=== PATIENT | female | born 1965 | race Caucasian/White ===

== ENCOUNTER 2021-06-09 10:51 | Emergency (ER) | payer MEDICAID ==
[~2021-06-09] VITALS: Ht 167.6 cm; Wt 79.8 kg
--- NOTE | 2021-06-09 10:51 | NUR ---
PT BIBA AND TAKEN TO BED 7
[2021-06-09 10:55] VITALS: BP 141/77
--- NOTE | 2021-06-09 10:59 | NUR ---
dr. stevenson bedside evaluating pt
--- NOTE | 2021-06-09 11:02 | NUR ---
55 Y/O FEMALE BIBA FROM HOME C/O DIZZINESS X1DAY. PER EMS PT STATES ROOM SPINS, ATAXIA NOTED ON SCENE. PT STATES SHE WAS RECENTLY DX WITH EAR INFECTION PRESCRIBED ABX, STOPPED TAKING DUE TO REACTION. STATES +N/-V. DENIES FEVER/CHILLS. DENIES PAIN. PMH: HTN NKA
[2021-06-09] MEDS ORDERED: MECLIZINE 25 MG TAB ONE (11:11)
[2021-06-09] MEDS ORDERED: ONDANSETRON 4 MG ODT ONE (11:12)
[2021-06-09] MEDS ORDERED: ONDANSETRON 4 MG ODT PO ONE (11:15)
[2021-06-09] MEDS ORDERED: MECLIZINE 25 MG TAB PO ONE (11:15)
--- NOTE | 2021-06-09 11:34 | NUR ---
COLLECTED [facility], WALKED TO LAB. GAVE TO RAFFAELE, METAPHYSICIAN AT THIS TIME.
[2021-06-09] MEDS ORDERED: FERR-212 PO (11:54)
[2021-06-09] MEDS ORDERED: AMPICILLIN/SULBACTAM 3 GM VIAL IV ONE (11:55)
[2021-06-09] MEDS ORDERED: AMPICILLIN/SULBACTAM 3 GM in NACL 0.9% 100 ML IV ONE (12:05)
--- NOTE | 2021-06-09 12:10 | NUR ---
PT SENT TO CT
--- NOTE | 2021-06-09 12:21 | NUR ---
PT TAKEN TO CT VIA [facility].
--- NOTE | 2021-06-09 12:44 | NUR ---
PT RESTING IN BED, DENIES N/V, DENIES DIZZINESS, VSS, WILL CONTINUE TO MONITOR.
[2021-06-09] MEDS ORDERED: VANCOMYCIN PER PHARMACY MC PRN (13:45)
[2021-06-09] MEDS ORDERED: CIPROFLOXACIN 0.3% OP 2.5 ML BTL OT ONE (13:45)
[2021-06-09] MEDS ORDERED: VANCOMYCIN 1GM/DEXT 5% PREMIX 200 ML IV ONE (13:45)
[2021-06-09] MEDS ORDERED: CEFEPIME 1,000 MG in DEXTROSE 5% 50 ML IV ONE (13:45)
--- NOTE | 2021-06-09 13:51 | NUR ---
PT ROAD TESTED, FAILED, MADE AWARE. PT ASSISTED ON BEDPAN IN BED. WILL CONTINUE TO MONITOR.
[2021-06-09] MEDS ORDERED: VANCOMYCIN 1,000 MG VIAL ONE (13:54)
[2021-06-09] MEDS ORDERED: CEFEPIME 1,000 MG VIAL ONE (13:55)
--- NOTE | 2021-06-09 14:22 | NUR ---
GAVE REPORT TO LINDSAY JENSEN FOR PENDING TRANSFER TO [facility]. ETA 1HR 15MINUTES.
[2021-06-09 14:34] VITALS: BP 136/66
--- NOTE | 2021-06-09 14:36 | NUR ---
Patient to be transferred to [facility]. Is being transferred due to HIGHER LEVEL OF CARE. Receiving facility has accepting physician and available space. ER physician has signed transfer form. Patient or responsible alliance party has agreed to transfer and signed form. Patient belongings inventoried and will be sent with patient. Copy of nursing notes, lab reports, EKG, Physicians Orders and X-rays to be sent with patient. Report called to MIKEY MONTOYA RN at receiving facility. [facility] ambulance service has been called for transfer. ETA is 30MINUTES.
== END 2021-06-09 14:35 | disposition short-term general hospital (02) ==
LOC: MED 10:51
DX: H83.01 Labyrinthitis, right ear (principal); E11.9 Type 2 diabetes mellitus without complications; H91.91 Unspecified hearing loss, right ear; R42 Dizziness and giddiness
CPT/HCPCS: 70450; 87426; 96365; 96367; 96375; 99285; J0295; J0692; J3370; J8597; Q0162